=== PATIENT | female | born 1965 | race Caucasian/White ===

== ENCOUNTER 2022-07-17 09:22 | Emergency (ER) | payer OTHER, SELFPAY ==
--- NOTE | 2022-07-17 09:30 | ED.EYEPROB ---
HPI - Eye Problem General Chief complaint: Eye Problems Stated complaint: Left Eye Irritation Time Seen by Provider: 07/17/22 09:31 Source: patient, RN notes reviewed and old records reviewed Mode of arrival: ambulatory Limitations: no limitations History of Present Illness HPI Narrative: 56-year-old female presents to the [facility] with left upper eyelid swelling. Patient reports a week ago she had a stye in the left lower lid which cleared up by itself. States she has been applying warm compresses but this 1 is not getting any better. Concern for stye on the inside RI. Denies any trauma. Has a history of styes. Denies any blurry vision change in vision. Right eye 20/25, left eye 20/25, both eyes 20/20 Does not wear contact lenses Related Data Allergies Allergy/AdvReac Type Severity Reaction Status Date / Time No Known Allergies Allergy Verified 07/17/22 09:36 Review of Systems Review of Systems: All systems reviewed & are unremarkable except as noted in HPI and below Constitutional: Constitutional: Reports no additional constitutional complaints Eyes: Eyes: Reports as per HPI, Denies change in vision and Denies photophobia ENT: Reports system reviewed and no additional complaints, except as documented Cardiovascular: Cardiovascular: Reports no additional cardiovascular complaints, Denies chest pain and Denies dyspnea Respiratory: Respiratory: Reports no additional respiratory complaints, Denies chest congestion, Denies cough and Denies dyspnea Gastrointestinal: Gastrointestinal: Reports no additional gastrointestinal complaints, Denies abdominal pain, Denies nausea and Denies vomiting Musculoskeletal: Musculoskeletal: Reports no additional musculoskeletal complaints Integumentary/Breasts: Skin/Breast: Reports system reviewed and no additional complaints, except as docu Neurologic: Reports system reviewed and no additional complaints, except as documented Psychiatric: Psychiatric: Reports no additional psychiatric complaints Allergic/Immunologic: Allergic/Immunologic: Reports no additional allergic/immunologic complaints [facility] Family History Family History Father Hypertension Family history of elevated blood lipids Mother Hypertension Family history of seizure disorder Social History Social History Smoking status: Never smoker Alcohol intake: current Comments At the time of my signature, I reviewed and agree with the nursing past medical, surgical, social, and family history. There is no relevant family history pertinent to the patient complaint. Exam Const: General: cooperative, healthy appearing, comfortable, no acute distress, well developed, alert and well nourished Nutritional Appearance: well nourished Orientation/consciousness: patient oriented x3 Limitations: no limitations HENMT: Head: normal to inspection Ears: hearing grossly normal bilaterally and external ears normal Face/Nose/Sinus: Normal external nose present, Normal nares present, Normal nasal mucous membranes and turbinates present and normal facial exam Face and sinus: normal facial exam Mouth: Yes Normal oral and palatal mucosa present, Yes lip normal and Yes moist mucous membranes Throat: posterior oropharynx normal and uvula midline Eyes: General: appearance normal, both eyes and all related structures Alignment and Position: alignment normal Periorbital: periorbital findings normal Eyelids: eyelid abnormality left upper eyelid inflamed cyst external lid and erythema Conjunctivae: conjunctivae normal Pupils: Equal, round and reactive pupils present EOM: EOMs intact bilaterally Eyes/upper lids images: 1. Stye with mild erythema. Neck: Neck: normal visual inspection, full ROM, no lymphadenopathy and no meningeal signs Chest: Chest palpation & inspection: normal inspection of the chest Resp: Effort &
[2022-07-17 09:40] VITALS: BP 138/79; PULSE 70; RESP 18; TEMP 36.9; O2SAT 100
== END 2022-07-17 09:50 | disposition home or self-care (01) ==
PROVIDERS: Emergency Provider Nurse Practitioner; PCP Family Medicine
DX: H00.014 Hordeolum externum left upper eyelid (principal)
CPT/HCPCS: 99213; G0463

== ENCOUNTER → 2022-08-24 15:19 | Outpatient (CLI) | payer SELFPAY ==
--- NOTE | ~2022-08-24 | CT_ITS ---
EXAMINATION: CT soft tissue neck wo con DATE: 08/24/2022 15:39 INDICATION: Neck mass. Lymphadenopathy. TECHNIQUE: Computed tomography (CT) of the neck was performed without intravenous contrast. Automated exposure control and iterative reconstruction technique were employed. The dose-length product was 3 60.53 mGy-cm. COMPARISON: Neck CT 09/12/2014 FINDINGS: There is a 7 x 8 mm mass in superficial left parotid gland. There is a skin marker overlyin g this mass. There are no pathologically enlarged lymph nodes. There is severe cervical spondylosis. IMPRESSION: 1. 8 mm mass in left parotid gland, which may be a normal lymph node, benign mixed tumor, or Warthin tumor. Reviewed, dictated and finalized at location A. HANGER IMPRESSION: 1. 8 mm mass in left parotid gland, which may be a normal lymph node, benign mi xed tumor, or Warthin tumor.
== END ==
PROVIDERS: PCP Family Medicine; Visit Provider Family Medicine
DX: R22.1 Localized swelling, mass and lump, neck (principal)
CPT/HCPCS: 70490

== ENCOUNTER → 2023-06-30 13:38 | Outpatient (CLI) | payer OTHER, SELFPAY ==
--- NOTE | ~2023-06-30 | MM_ITS ---
EXAMINATION: MM screening vlad BI w марина HISTORY: Screening TECHNIQUE: Craniocaudal and mediolateral oblique 3-D tomosynthesis images were obtained and synthetic 2-D images were generated. CAD analysis was submitted and interpreted. COMPARISON: 10/29/2018 BREAST PARENCHYMAL COMPOSITION: There are scattered areas of fibroglandular density. FINDINGS: There is no evidence of suspicious mass, calcification, or architectural distortion to sugg est malignancy in either breast. There has been no suspicious interval change. IMPRESSION: 1. No mammographic evidence of malignancy. 2. Recommend routine screening mammography in one year. BI-RADS Category 1: Negative Reviewed, dictated and finalized at location A. R MAKER FORMULATOR
== END ==
PROVIDERS: PCP Internal Medicine; Visit Provider Internal Medicine
DX: Z12.31 Encounter for screening mammogram for malignant neoplasm of breast (principal)
CPT/HCPCS: 77063; 77067

== ENCOUNTER → 2023-07-18 16:31 | Outpatient (CLI) | payer OTHER, SELFPAY ==
--- NOTE | ~2023-07-18 | XR_ITS ---
EXAM: XR shoulder LT min 2V DATE: 07/18/2023 17:10 HISTORY: LEFT SHOULDER PAIN . COMPARISON: X-ray chest 09/15/2014. FINDINGS: Decreased mineralization. No fracture or dislocation. Thoracic scoliosis. No lytic or terri tic lesion. Mild degenerative change at the AC joint and glenohumeral joint. No erosion or periosteal change. Granulomatous calcifications. IMPRESSION: Osteopenia. Thoracic scoliosis. 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 Reviewed, dictated and finalized at location K. OR [employer]UX UNIX ENGINEER IMPRESSION: Osteopenia. Thoracic scoliosis. Mild polyarticular osteoarthritis i n the left shoulder.
== END ==
PROVIDERS: PCP Internal Medicine; Visit Provider Internal Medicine
DX: M85.812 Other specified disorders of bone density and structure, left shoulder (principal); M19.012 Primary osteoarthritis, left shoulder; M41.84 Other forms of scoliosis, thoracic region; G89.29 Other chronic pain
CPT/HCPCS: 73030

== ENCOUNTER → 2023-07-24 08:43 | Outpatient (CLI) | payer OTHER, SELFPAY ==
--- NOTE | ~2023-07-24 | MR_ITS ---
MRI of the left shoulder Technique: Axial proton-density fat-sat images, coronal proton density fat-sat and T2 fat-sat images, and sagittal T1-weighted and T2 fat-sat images were acquired. Clinical History: Pain Findings: There is mild AC joint degenerative change. Coracoclavicular, coracoacromial, and coracohum eral ligaments are intact. There is moderate supraspinatus and infraspinatus tendinosis, without partial or full-thickness tear. Subscapularis tendon is intact. Tendon of long head of the biceps is intact. No definite labral tear seen. Inferior glenohumeral ligament is intact. There is mild chondromalacia of the glenohumeral joint. No joint effusion evident. No fluid distention of the subacromial/subdeltoid bursa. No muscle atrophy or edema. Impression: Mild AC joint degenerative change. Mild to moderate rotator cuff tendinosis. Chondromalacia of the glenohumeral joint. Reviewed, dictated and finalized at [facility]. P DROP ENGINEER Impression: Mild AC joint degenerative change. Mild to moderate rotator cuff tendinosis. Chondromalacia of the glenohumeral joint.
== END ==
PROVIDERS: PCP Internal Medicine; Visit Provider Internal Medicine
DX: M19.012 Primary osteoarthritis, left shoulder (principal)
CPT/HCPCS: 73221

== ENCOUNTER 2025-05-02 08:45 | Outpatient (CLI) | payer OTHER, SELFPAY ==
--- NOTE | ~2025-05-02 | DEXA_ITS ---
Bone Density Report Name: BOBBY BADILLO Age: 59 Sex: Female Ethnicity: White Date of : 1965 Indication: postmenopausal; screening for osteoporosis; height loss; hysterectomy; Referring Provider: Kunal, Julian Study: Bone densitometry was performed. Exam Date: May 02, 2025 Accession number: [id number] Bone Density: Region BMD T-score Z-score Classification AP Spine(L1-L4) 0.774 -2.5 -1.1 Osteoporosis Femoral Neck (Left) 0.674 -1.6 -0.3 Osteopenia Total Hip (Left) 0.781 -1.3 -0.4 Osteopenia Femoral Neck (Right) 0.705 -1.3 0.0 Osteopenia Total Hip (Right) 0.761 -1.5 -0.6 Osteopenia Total Hip Mean 0.771 -1.4 -0.5 Osteopenia World Health Organization criteria for BMD impression classify patients as: Normal (T-score at or above -1.0), Osteopenia (T-score between -1.0 and -2.5), or Osteoporosis (T-score at or below -2.5). 10-year Fracture Risk: FRAX not reported because: Some T-score for Spine Total or Hip Total or Femoral Neck at or below -2.5 Previous Exams: -- Region Exam Age BMD T-score BMD Change BMD Change Date g/cm2 vs Baseline vs Previous -- AP Spine (L1-L4) 05/02/2025 59 0.774 -2.5 -19.7%# -19.7%# 03/17/2010 44 0.963 -0.8 Total Hip(Left) 05/02/2025 59 0.781 -1.3 -17.2%# -17.2%# 03/17/2010 44 0.943 0.0 Total Hip(Right) 05/02/2025 59 0.761 -1.5 -16.1%# -16.1%# 03/17/2010 44 0.908 -0.3 -- *Denotes significance at 95% confidence level, LSC for AP Spine = 0.022 g/cm2, LSC for Total Hip = 0.027 g/cm2 # Denotes dissimilar scan types or analysis methods Clinical Information Provided by Patient: Has the following medical conditions: Hysterectomy Patient maximum height was 69 Menopause Age: 50 Onset of menses at age 12 Number of children 2 Impression: The patient has osteoporosis, based on the Total Spine T-score. Unable to evaluate interval change due to the use of different scan modes. Discussion: INCREASED RISK OF FRACTURE. BONE DENSITY IS UNDESIRABLY LOW AT ONE OR MORE SKELETAL SITES, CONSISTENT WITH POSTMENOPAUSAL OSTEOPOROSIS. This patient's lowest T-score meets the World Health Organization's (WHO) criteria for osteoporosis at one or more sites (T-score -2.5 or below). In untreated patients, the risk of osteoporotic fracture increases approximately two-fold for each 1.0 SD decrease in T-score. Low bone density is not the only risk factor for fracture; also consider factors such as patient's age, frailty or poor health, risk of falling, risk of injury, previous osteoporotic fracture, family history of osteoporosis, cigarette smoking, low body weight, etc. Not everyone with low bone mineral density has osteoporosis; osteomalacia and other metabolic bone disorders should also be considered. Patients who have osteoporosis should be evaluated for specific diseases and conditions (secondary causes) that may cause or contribute to bone loss. The [place] [employer]ocr[employer] (AACE) and National Osteoporosis Foundation (NOF) recommend pharmacologic intervention for all postmenopausal women whose T-score is in this range. The patient should follow a healthful lifestyle (good nutrition with adequate calcium and vitamin D, and appropriate weight-bearing exercise). Follow-Up: Consider a repeat BMD and Vertebral Fracture Assessment (VFA) exam in 2 years or sooner if medically necessary, to reassess this patient's status. Reported by: SALLY on 05/02/2025 9:07:00 AM. Reviewed, dictated and finalized at location A.
== END 2025-05-02 08:46 | disposition home or self-care (01) ==
LOC: MICIMG 08:45
PROVIDERS: PCP Internal Medicine; Visit Provider Internal Medicine
DX: M85.89 Other specified disorders of bone density and structure, multiple sites (principal); M81.0 Age-related osteoporosis without current pathological fracture; Z78.0 Asymptomatic menopausal state; Z79.899 Other long term (current) drug therapy
CPT/HCPCS: 77080